=== PATIENT | male | born 1985 | race Caucasian/White ===

== ENCOUNTER 2021-02-16 16:01 | Emergency (ER) | payer OTHER ==
[~2021-02-16] VITALS: Ht 185.4 cm; Wt 83.9 kg
--- NOTE | 2021-02-16 16:25 | NUR ---
Pt seen and examined by Dr Gómez.
[2021-02-16] MEDS ORDERED: SULF15DR6 EACHEYE (16:32)
[2021-02-16 16:43] VITALS: BP 140/87
--- NOTE | 2021-02-16 16:43 | NUR ---
Patient discharged to home in stable condition. Written and verbal after care instructions given. Patient verbalizes understanding of instructions. Stressed follow up or return to ER for worsening s/s.
== END 2021-02-16 16:43 | disposition home or self-care (01) ==
LOC: ER 16:01
DX: H10.9 Unspecified conjunctivitis (principal)
CPT/HCPCS: A4663

== ENCOUNTER 2021-04-01 16:34 | Emergency (ER) | payer SELFPAY ==
[~2021-04-01 16:34] MED LIST: SULF15DR6 EACHEYE
--- NOTE | 2021-04-01 16:45 | NUR ---
Attempted to triage pt, pt was not found in ER waiting room or outside ER.
== END 2021-04-01 17:09 | disposition left against medical advice (07) ==
LOC: ER 16:35
DX: Z53.21 Procedure and treatment not carried out due to patient leaving prior to being seen by health care provider (principal)